=== PATIENT | male | born 1985 | race Two or more races ===

== ENCOUNTER 2018-03-26 14:58 | Emergency (ER) | payer OTHER ==
[~2018-03-26] VITALS: Ht 175.3 cm; Wt 83.9 kg
[~2018-03-26 14:58] MED LIST: ALLEGRA ALLERG180 MG PO; GILTUSS TR TAB1 EACH PO; LYRICA50 MG; MEDROL4 MG PO; ROCEPHIN1 G/VIAL IJ; TESSALON200 MG PO; TUSNEL CAPSULE1 CAP PO; TUSSI PRES-B L120 M1 PO; VENTOLIN HFA18 GM IH; VOLTAREN-XR100 MG; ZITHROMAX TRI-500 MG PO; ZITHROMAX500 MG PO; ZYRTEC10 MG PO
== END 2018-03-26 20:59 | disposition home or self-care (01) ==
LOC: ER 14:58
DX: K59.09 Other constipation (principal); R51 Headache; R10.32 Left lower quadrant pain